=== PATIENT | female | born 1985 | race Caucasian/White ===

== ENCOUNTER 2016-12-09 13:44 | Emergency (ER) | payer OTHER ==
[~2016-12-09] VITALS: Ht 165.1 cm; Wt 136.5 kg
[2016-12-09 13:51] VITALS: BP 148/94
--- NOTE | 2016-12-09 14:43 | RAD ---
Left second toe, 3 views, 12/09/2016: History: Toe injury No fracture or dislocation is identified. The soft tissues are unremarkable. IMPRESSION: No acute abnormality is detected.
--- NOTE | 2016-12-09 15:03 | PHYS DOC ---
Past History Past Medical History: Asthma, Diabetes Past Surgical History: No Surgical History Alcohol Use: None Drug Use: None Adult General Chief Complaint Chief Complaint: TOE PROBLEM [facility] HPI Patient is a 31 year old F who presents with left toe pain after accidentally kicking a bedside table. She feels that her pain is worse with palpation and bearing weight. Her pain is improved with nonweightbearing and rest. She does not feel that her pain radiates or is associated with other symptoms. She has no previous injury Review of Systems Review of Systems Constitutional: Denies fever or chills [] Eyes: Denies change in visual acuity, redness, or eye pain [] HENT: Denies nasal congestion or sore throat [] Respiratory: Denies cough or shortness of breath [] Cardiovascular: No additional information not addressed in HPI [] GI: Denies abdominal pain, nausea, vomiting, bloody stools or diarrhea [] : Denies dysuria or hematuria [] Musculoskeletal: Negative except history of present illness Integument: Denies rash or skin lesions [] Neurologic: Denies headache, focal weakness or sensory changes [] Endocrine: Denies polyuria or polydipsia [] Family History Family History Noncontributory Current Medications Current Medications Medications reviewed Allergies Allergies Allergies Coded Allergies Type Severity Reaction Last Updated Verified Penicillins Allergy Unknown 12/09/16 Yes erythromycin base Allergy Unknown 12/09/16 Yes neomycin Allergy Unknown 12/09/16 Yes Physical Exam Physical Exam Constitutional: Well developed, well nourished, no acute distress, non-toxic appearance. [] HENT: Normocephalic, atraumatic, Eyes: EOMI, conjunctiva normal, no discharge. [] Cardiovascular:Heart rate regular rhythm, no murmur [] Lungs & Thorax: Bilateral breath sounds clear to auscultation [] Skin: Warm, dry, no erythema, no rash. [] Extremities: no cyanosis, no clubbing, ROM intact, no edema. [] Mild tenderness over the left second toe Neurologic: Alert and oriented X 3, normal motor function, normal sensory function, no focal deficits noted. [] Psychologic: Affect normal, judgement normal, mood normal. [] Current Patient Data Vital Signs Vital Signs Date Time Temp Pulse Resp B/P (MAP) Pulse Ox O2 Delivery O2 Flow Rate FiO2 12/09/16 13:51 97.5 85 16 98 Room Air Radiology/Procedures Radiology/Procedures Left toes Impressions: No bony abnormality Course & Med Decision Making Course & Med Decision Making Pertinent Labs and Imaging studies reviewed. (See chart for details) Bronwyn Disclaimer Bronwyn Disclaimer This chart was dictated in whole or in part using Voice Recognition software in a busy, high-work load, and often noisy Emergency Department environment. It may contain unintended and wholly unrecognized errors or omissions. Departure Departure: Impression: Primary Impression: Toe contusion Condition: STABLE Referrals: ALVARO CAZARES APRN (PCP) Patient Instructions: Foot Contusion Additional Instructions: Gisella was seen in the emergency room for toe pain. No emergency medical condition was found on history or physical exam. She had normal x-rays of foot. She is advised follow-up with her primary care doctor as needed for further management. Problem Qualifiers Primary Impression: Toe contusion Encounter type: initial encounter Toe: lesser toe Damage to nail status: without damage Laterality: left Qualified Codes: S90.122A - Contusion of left lesser toe(s) without damage to nail, initial encounter CURTIS GIPSON MD Dec 09, 2016 15:03
== END 2016-12-09 15:05 | disposition home or self-care (01) ==
LOC: ER 13:44
DX: S90.122A Contusion of left lesser toe(s) without damage to nail, initial encounter (principal); E11.9 Type 2 diabetes mellitus without complications; J45.909 Unspecified asthma, uncomplicated; Z88.0 Allergy status to penicillin; Z88.1 Allergy status to other antibiotic agents; W22.8XXA Striking against or struck by other objects, initial encounter; Y93.89 Activity, other specified; Y99.8 Other external cause status; Y92.89 Other specified places as the place of occurrence of the external cause
CPT/HCPCS: 73660; 99284